=== PATIENT | male | born 1995 | race African-American/Black ===

== ENCOUNTER 2017-01-15 06:28 | Emergency (ER) | payer OTHER ==
[2017-01-15] MEDS ORDERED: ACETAMINOPHEN IV (For NPO) 1,000 MG in SALINE 1 100ML.BAG IVPB STA (07:29)
[2017-01-15] MEDS ORDERED: SODIUM CHLORIDE 0.9% 1,000 ML IV STA (07:29)
--- NOTE | 2017-01-15 07:32 | ED ---
General Adult HPI - General Chief complaint: Extremity Injury, Lower Stated complaint: Muscle pain Time Seen by Provider: 01/15/17 07:12 Source: patient, RN notes reviewed Mode of arrival: ambulatory Limitations: no limitations - History of Present Illness Initial comments: Patient is a pleasant 21-year-old male presenting to the emergency department complaining of diffuse muscle aches. Patient played vascular yesterday for 5 hours. Patient does frequently play basketball however usually only in an hour or so. Patient has diffuse muscle ache. Patient states mostly his legs and shoulders. Patient also complains of some discomfort of his abdomen only with movement. Patient denies any specific injury. No fever. - Related Data Home Medications Medication Instructions Recorded Confirmed No Known Home Medications [No 01/15/17 01/15/17 Known Home Medications] Allergies Allergy/AdvReac Type Severity Reaction Status Date / Time No Known Allergies Allergy Verified 01/15/17 07:19 Review of Systems ROS Statement: Those systems with pertinent positive or pertinent negative responses have been documented in the HPI. ROS Other: All systems not noted in ROS Statement are negative. Constitutional: Denies: fever, chills Eyes: Denies: eye pain ENT: Denies: ear pain Respiratory: Denies: cough, dyspnea Cardiovascular: Denies: chest pain Endocrine: Denies: fatigue Gastrointestinal: Reports: abdominal pain (Only with movement) Genitourinary: Denies: dysuria Skin: Denies: rash Neurological: Denies: weakness Past Medical History Past Medical History: No Reported History History of Any Multi-Drug Resistant Organisms: None Reported Past Surgical History: No Surgical Hx Reported Past Psychological History: No Psychological Hx Reported Smoking Status: Never smoker Past Alcohol Use History: None Reported Past Drug Use History: None Reported General Exam Limitations: no limitations General appearance: alert, in no apparent distress Head exam: Present: atraumatic Eye exam: Present: normal appearance, PERRL ENT exam: Present: normal oropharynx Neck exam: Present: normal inspection Respiratory exam: Present: normal lung sounds bilaterally Cardiovascular Exam: Present: regular rate, normal rhythm Expanded Peripheral pulses: 2+: Posterior Tibialis (R), Posterior Tibialis (L) GI/Abdominal exam: Present: soft. Absent: distended, tenderness, guarding, rebound, rigid, pulsatile mass Extremities exam: Present: normal inspection, full ROM. Absent: tenderness Neurological exam: Present: alert Psychiatric exam: Present: normal affect, normal mood Skin exam: Absent: rash Course Vital Signs 01/15/17 01/15/17 06:29 09:03 Temperature 98.7 F Pulse Rate 60 56 L Respiratory 20 18 Rate Blood Pressure 128/71 133/70 O2 Sat by Pulse 99 100 Oximetry Medical Decision Making - Medical Decision Making Patient reevaluated and is improved with IV fluids and over mouth. Patient updated on results. Patient advised to have CPK level redrawn within the next 24 hours. Patient is advised to avoid exertion for the next several days. - Lab Data Result diagrams: 01/15/17 07:50 01/15/17 07:50 Lab Results 01/15/17 01/15/17 01/15/17 Range/Units 07:50 07:50 08:20 WBC 3.4 L (4.0-11.0) k/uL RBC 4.71 (4.30-5.90) m/uL Hgb 13.0 (13.0-17.5) gm/dL Hct 40.2 (39.0-53.0) % MCV 85.5 (80.0-100.0) fL MCH 27.6 (25.0-35.0) pg MCHC 32.3 (31.0-37.0) g/dL RDW 13.1 (11.5-15.5) % Plt Count 191 (150-450) k/uL Neutrophils % 40 % Lymphocytes % 40 % Monocytes % 8 % Eosinophils % 7 % Basophils % 1 % Neutrophils # 1.4 (1.3-7.7) k/uL Lymphocytes # 1.4 (1.0-4.8) k/uL Monocytes # 0.3 (0-1.0) k/uL Eosinophils # 0.3 (0-0.7) k/uL Basophils # 0.0 (0-0.2) k/uL Sodium 145 (137-145) mmol/L Potassium 3.8 (3.5-5.1) mmol/L Chloride 108 H (98-107) mmol/L Carbon Dioxide 26 (22-30) mmol/L Anion Gap 11 mmol/L BUN 10 (9-20) mg/dL Creatinine 0.96 (0.66-1.25) mg/dL Est GFR (MDRD) Af Amer >60 (>60 ml/min/1.73 sqM) Est GFR (MDRD) Non-Af >60 (>60 ml/min/1.73 sqM) Glucose 91 (74-99) mg/dL Calcium 9.5 (8.4-10.2) mg/dL Magnesium 1.8 (1.6-2.3) mg/dL Total Bilirubin 0.6 (0.2-1.3) mg/dL AST 38 (17-59) U/L ALT 24 (21-72) U/L Alkaline Phosphatase 71 (38-126) U/L Creatine Kinase 1170 H (55-170) U/L Total Protein 7.5 (6.3-8.2) g/dL Albumin 4.2 (3.5-5.0) g/dL Urine Color Yellow Urine Appearance Clear (Clear) Urine pH 6.0 (5.0-8.0) Ur Specific [place] 1.030 (1.001-1.035) Urine Protein 1+ H (Negative) Urine Glucose (UA) Negative (Negative) Urine Ketones Negative (Negative) Urine Blood Negative (Negative) Urine Nitrate Negative (Negative) Urine Bilirubin Negative (Negative) Urine Urobilinogen 2.0 (<2.0) mg/dL Ur Leukocyte Esterase Trace H (Negative) Urine RBC 7 H (0-5) /hpf Urine WBC 9 H (0-5) /hpf Amorphous Sediment Rare H (None) /hpf Urine Mucus Many H (None) /hpf Urine Sperm Rare (None) /hpf Disposition Clinical Impression: Muscle fatigue Disposition: HOME SELF-CARE Condition: Stable Instructions: Rhabdomyolysis (ED) Additional Instructions: Increase fluids for the next several days. Avoid exertion for the next several days. Please have your CPK level rechecked in 24 hours. Number for right if her primary care physician. If unable to follow up with primary care physician can return to emergency department. Return for weakness, increased pain, change in urine color, worsening symptoms or other concerns. Referrals: None,Stated [Primary Care Provider] - 1-2 days Troy Dial MD [STAFF PHYSICIAN] - 1-2 days Time of Disposition: 09:13
[2017-01-15 08:32] LABS: Basophils % (A) 1 %; CH 27.6; CHCM 32.5; Eosinophils # (A) 0.3 k/uL (0-0.7); Eosinophils % (A) 7 %; HCT 40.2 % (39.0-53.0); HDW 2.47; Luc # (Auto) 0.13; Luc % (Auto) 4; Lymphocytes # (A) 1.4 k/uL (1.0-4.8); Lymphocytes % (A) 40 %; MCH 27.6 pg (25.0-35.0); MCHC 32.3 g/dL (31.0-37.0); MCV 85.5 fL (80.0-100.0); Mean Platelet Volume 8.6; Monocytes # (A) 0.3 k/uL (0-1.0); Monocytes % (A) 8 %; Neutrophils # (A) 1.4 k/uL (1.3-7.7); Neutrophils % (A) 40 %; RBC 4.71 m/uL (4.30-5.90); RDW 13.1 % (11.5-15.5); WBC 3.4 k/uL (4.0-11.0); WBC (Perox) 3.36
[2017-01-15 08:39] LABS: Amorphous Sediment,Urine Rare /hpf; Appearance,Urine Clear (Clear); Bilirubin,Urine Negative (Negative); Glucose,Urine (UA) Negative (Negative); Ketones,Urine Negative (Negative); Leukocyte Esterase,Urine Trace (Negative); Mucus,Urine Many /hpf; Nitrite,Urine Negative (Negative); Particle Count 9370; Protein,Urine 1+ (Negative); RBC,Urine 7 /hpf (0-5); Sperm,Urine Rare /hpf; UA Billing (MACRO vs. MICRO) MICRO; WBC,Urine 9 /hpf (0-5)
[2017-01-15 08:50] LABS: ALT 24 U/L (21-72); AST 38 U/L (17-59); Alkaline Phosphatase 71 U/L (38-126); Anion Gap 11 mmol/L; Blood Urea Nitrogen 10 mg/dL (9-20); Calcium 9.5 mg/dL (8.4-10.2); Carbon Dioxide 26 mmol/L (22-30); Chloride 108 mmol/L (98-107); Creatine Kinase 1170 U/L (55-170); Glucose 91 mg/dL (74-99); Magnesium 1.8 mg/dL (1.6-2.3); Non-African American GFR(MDRD) >60 (>60 ml/min/1.73 sqM); Potassium 3.8 mmol/L (3.5-5.1); Sodium 145 mmol/L (137-145); Total Bilirubin 0.6 mg/dL (0.2-1.3); Total Protein 7.5 g/dL (6.3-8.2)
[2017-01-15 09:17] VITALS: RESP 18
[2017-01-15 09:20] VITALS: BP 137/68; PULSE 59; TEMP 97.9
== END 2017-01-15 09:24 | disposition home or self-care (01) ==
LOC: EC 06:28
DX: M62.82 Rhabdomyolysis (principal)
CPT/HCPCS: 36415; 80053; 82550; 83735; 85025; 81001; 99283; 96374; 96361; J0131

== ENCOUNTER 2017-05-06 22:20 | Emergency (ER) | payer OTHER ==
[2017-05-06 22:25] VITALS: BP 122/77; PULSE 52; RESP 18; TEMP 97.3
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
--- NOTE | 2017-05-06 23:14 | XR ---
EXAM: XR Right Hand Complete, 3 or More Views CLINICAL HISTORY: Reason: Pain TECHNIQUE: Frontal, lateral and oblique views of the right hand. COMPARISON: No relevant prior studies available. FINDINGS: Bones/joints: No evidence of fracture or dislocation. No bony erosive changes. No significant arthritic changes identified. Soft tissues: No radiopaque foreign body. IMPRESSION: No acute bone or joint abnormalities. No evidence of fracture or dislocation.
== END 2017-05-06 23:03 | disposition home or self-care (01) ==
LOC: EC 22:20
DX: S60.221A Contusion of right hand, initial encounter (principal); W22.8XXA Striking against or struck by other objects, initial encounter
CPT/HCPCS: 99283

== ENCOUNTER 2017-06-01 10:59 | Emergency (ER) | payer OTHER ==
[2017-06-01 11:04] VITALS: RESP 18
--- NOTE | 2017-06-01 11:24 | ED ---
General Adult HPI - General Chief complaint: Urogenital Stated complaint: MALE PAIN Time Seen by Provider: 06/01/17 11:05 Source: patient, family, RN notes reviewed, old records reviewed Mode of arrival: ambulatory Limitations: no limitations - History of Present Illness Initial comments: Chief complaint history of present illness; is a 21-year-old male here with a complaint of discomfort to his right testicle starting approximately 3 days ago. One day after started the pain subsided. Present back for the past 2 days. Tender epididymis on examination. Denies any penile discharge. Denies any direct injury. No nausea no vomiting. - Related Data Previous Rx's Medication Instructions Recorded Doxycycline Hyclate 100 mg PO BID #19 tab 06/01/17 Allergies Allergy/AdvReac Type Severity Reaction Status Date / Time No Known Allergies Allergy Verified 06/01/17 12:15 Review of Systems ROS Statement: Those systems with pertinent positive or pertinent negative responses have been documented in the HPI. Review of systems no other complaints other than right testicular discomfort. All systems are reviewed. Past medical problems no chronic medical problems. No surgeries. Family history no episodes of cancer diabetes or high blood pressure per patient. Denies any ALLERGIES. Denies smoking. Denies alcohol use. ROS Other: All systems not noted in ROS Statement are negative. Past Medical History Past Medical History: No Reported History History of Any Multi-Drug Resistant Organisms: None Reported Past Surgical History: No Surgical Hx Reported Past Psychological History: No Psychological Hx Reported Smoking Status: Never smoker Past Alcohol Use History: None Reported Past Drug Use History: None Reported General Exam - General Exam Comments Initial Comments: General: The patient is awake and alert, complains or right testicular discomfort. Vital signs temp 99.6 pulse 51 respiratory rate 18 pulse ox 99% room air blood pressure 132/74 Gastrointestinal: Abdomen nontender. No pain over the right inguinal area. No evidence of any hernias. Examination of the genitalia finds normal appearing penis with circumcision. Normal bilateral cremasteric reflexes. Left and right testicle. Previous same size but significantly tender right testicle with manipulation and increased tenderness with palpation of the epididymis. No penile discharge. Limitations: no limitations Course Vital Signs 06/01/17 06/01/17 11:02 13:45 Temperature 99.6 F 98.2 F Pulse Rate 51 L 69 Respiratory 18 18 Rate Blood Pressure 132/74 129/65 O2 Sat by Pulse 99 Oximetry Medical Decision Making - Medical Decision Making Urinalysis was clean no signs of infection. Ultrasound done of the scrotum was performed and reviewed radiologist his impression is that Doppler performed to assess for testicular vascularity, good bilateral color flow and waveforms are seen. There is no evidence of testicular torsion. However there is a complex hypoechoic nonvascular lesion in the right epididymis measuring 0.9 point 0.9 8.7 cm. No hydroceles or varicocele. Final impression no testicular torsion or mass. 9 x 6 mm complex cyst in the right epididymis. No free fluid there is no evidence of epididymitis. As read by Dr. Giron Due to clinical history and age patient will be treated is only has an epididymitis and referred to urology. Patient will be placed on doxycycline 100 twice a day for 10 days first dose was given here in emergency room. Also received Rocephin 250 IM. Told not to engage in any sexual activity until the gonorrhea and chlamydia tests return. He is to call follow-up nurse for those results. - Lab Data Lab Results 06/01/17 Range/Units 12:40 Urine Color Yellow Urine Appearance Clear (Clear) Urine pH 6.5 (5.0-8.0) Ur Specific [place] 1.017 (1.001-1.035) Urine Protein 1+ H (Negative) Urine Glucose (UA) Negative (Negative) Urine Ketones Negative (Negative) Urine Blood Negative (Negative) Urine Nitrite Negative (Negative) Urine Bilirubin Negative (Negative) Urine Urobilinogen <2.0 (<2.0) mg/dL Ur Leukocyte Esterase Negative (Negative) Urine RBC 1 (0-5) /hpf Urine WBC 2 (0-5) /hpf Ur Squamous Epith Cells <1 (0-4) /hpf Urine Bacteria Rare H (None) /hpf Urine Mucus Rare H (None) /hpf Disposition Clinical Impression: Epididymitis, right Disposition: HOME SELF-CARE Condition: Fair Instructions: Epididymitis (ED), Testicle Pain (ED) Additional Instructions: Take medications to completed. Call follow-up nurse for final results for urine test. Follow-up with family physician. And on-call urologist. Prescriptions: Doxycycline Hyclate 100 mg PO BID #19 tab Referrals: None,Stated [Primary Care Provider] - 1-2 days Time of Disposition: 14:23
[2017-06-01 13:20] LABS: Appearance,Urine Clear (Clear); Bacteria,Urine Rare /hpf; Bilirubin,Urine Negative (Negative); Glucose,Urine (UA) Negative (Negative); Ketones,Urine Negative (Negative); Leukocyte Esterase,Urine Negative (Negative); Mucus,Urine Rare /hpf; Nitrite,Urine Negative (Negative); PH, Urine 6.5 (5.0-8.0); Particle Count 2390; Protein,Urine 1+ (Negative); RBC,Urine 1 /hpf (0-5); Specific Gravity,Urine 1.017 (1.001-1.035); Squamous Epithelial Cell,Urine <1 /hpf (0-4); UA Billing (MACRO vs. MICRO) MICRO; Urobilinogen,Urine <2.0 mg/dL (<2.0); WBC,Urine 2 /hpf (0-5)
--- NOTE | 2017-06-01 13:36 | US ---
EXAMINATION TYPE: US scrotum with doppler. Grayscale and color Doppler Duplex imaging performed of t he scrotum. DATE OF EXAM: 06/01/2017 COMPARISON: NONE CLINICAL HISTORY: Rule out right epididymitis. EXAM MEASUREMENTS: TESTICLES: Right Testicle: 3.6 x 1.9 x 3.3 cm Left Testicle: 3.4 x 2.0 x 3.1 cm EPIDIDYMIS HEAD: Right Epididymis: 1.4 x 1.0 x 1.1 cm Left Epididymis: 1.2 x 0.7 x 1.1 cm Doppler performed to assess for testicular vascularity; good bilateral color flow and waveforms are s een. There is no evidence of testicular torsion. However there is a complex hypoechoic nonvascular lesion in the right epididymis measuring 0.9 x 0.9 x 0.7 cm. Presence of hydroceles: no Presence of varicoceles: no IMPRESSION: No testicular torsion or mass. 9 x 6 mm complex cyst in the right epididymis. No free flu id. There is no evidence of epididymitis.
[2017-06-01] MEDS ORDERED: DOXYCYCLINE 50 MG CAP PO STA (14:21)
[2017-06-01] MEDS ORDERED: cefTRIAXone 250 MG VIAL IM STA (14:21)
[2017-06-01 14:51] VITALS: BP 142/90; PULSE 59; TEMP 97.4
== END 2017-06-01 14:51 | disposition home or self-care (01) ==
LOC: EC 10:59
DX: N45.1 Epididymitis (principal)
CPT/HCPCS: 96372; 99284; 81001; 87491; 87591; 93975; 76870; J0696

== ENCOUNTER 2017-06-25 21:24 | Emergency (ER) | payer OTHER ==
[2017-06-25 21:38] VITALS: RESP 18
[2017-06-25] MEDS ORDERED: ONDANSETRON ODT 4 MG TAB PO STA (23:00)
[2017-06-25] MEDS ORDERED: Acetaminophen-Codeine 300-30mg TAB PO STA (23:00)
[2017-06-25] MEDS ORDERED: PENICILLIN V POTASSIUM 250 MG TAB PO STA (23:01)
--- NOTE | 2017-06-25 23:02 | ED ---
General Adult HPI - General Chief complaint: Headache Stated complaint: nausea Time Seen by Provider: 06/25/17 22:42 Source: patient, RN notes reviewed Mode of arrival: ambulatory Limitations: no limitations - History of Present Illness Initial comments: 21-year-old male presents emergency Department chief complaint dental pain. Patient states she's had left upper dental pain for last few days and not headache associated with it. Patient denies any fever or chills denies any neck pain or neck stiffness. Patient states she's been told he has a bad tooth needs it pulled states she does not have the financial means for this. Patient states that he does not take any medications for the pain at this time. - Related Data Previous Rx's Medication Instructions Recorded Acetaminophen-Codeine 300-30mg 1 tab PO Q4H PRN #20 tablet 06/25/17 [Tylenol #3] Ondansetron Odt [Zofran Odt] 4 mg PO Q8HR PRN #10 tab 06/25/17 Penicillin V Potassium [Pen Vee K] 500 mg PO QID #40 tab 06/25/17 Allergies Allergy/AdvReac Type Severity Reaction Status Date / Time No Known Allergies Allergy Verified 06/25/17 22:34 Review of Systems ROS Statement: Those systems with pertinent positive or pertinent negative responses have been documented in the HPI. ROS Other: All systems not noted in ROS Statement are negative. Past Medical History Past Medical History: No Reported History History of Any Multi-Drug Resistant Organisms: None Reported Past Surgical History: No Surgical Hx Reported Past Psychological History: No Psychological Hx Reported Smoking Status: Never smoker Past Alcohol Use History: None Reported Past Drug Use History: None Reported General Exam Limitations: no limitations General appearance: alert, in no apparent distress Head exam: Present: atraumatic, normocephalic, normal inspection Eye exam: Present: normal appearance, PERRL, EOMI. Absent: scleral icterus, conjunctival injection, periorbital swelling ENT exam: Present: mucous membranes moist, TM's normal bilaterally, normal external ear exam. Absent: normal oropharynx (Poor dentition, ental infection noted left upper no drainable abscess.) Neck exam: Present: normal inspection, full ROM. Absent: tenderness, meningismus, lymphadenopathy Respiratory exam: Present: normal lung sounds bilaterally. Absent: respiratory distress, wheezes, rales, rhonchi, stridor Cardiovascular Exam: Present: regular rate, normal rhythm, normal heart sounds. Absent: systolic murmur, diastolic murmur, rubs, gallop, clicks Course Vital Signs 06/25/17 06/25/17 21:35 23:20 Temperature 97.7 F 98.7 F Pulse Rate 55 L 78 Respiratory 18 18 Rate Blood Pressure 117/72 125/75 O2 Sat by Pulse 99 99 Oximetry Medical Decision Making - Medical Decision Making 21-year-old male presented for dental pain headache and some nausea. Patient will be given antibiotics pain medication and denies medication return parameters were discussed. Disposition Clinical Impression: Pain, dental, Headache Disposition: HOME SELF-CARE Condition: Stable Instructions: Toothache (ED) Additional Instructions: Please return to the Emergency Department if symptoms worsen or any other concerns. Prescriptions: Acetaminophen-Codeine 300-30mg [Tylenol #3] 1 tab PO Q4H PRN #20 tablet PRN Reason: pain Ondansetron Odt [Zofran Odt] 4 mg PO Q8HR PRN #10 tab PRN Reason: Nausea Penicillin V Potassium [Pen Vee K] 500 mg PO QID #40 tab Referrals: None,Stated [Primary Care Provider] - 1-2 days
[2017-06-25 23:21] VITALS: BP 125/75; PULSE 78; TEMP 98.7
== END 2017-06-25 23:23 | disposition home or self-care (01) ==
LOC: EC 21:24
DX: R51 Headache (principal); K08.89 Other specified disorders of teeth and supporting structures; R11.0 Nausea
CPT/HCPCS: 99283

== ENCOUNTER 2017-07-18 07:16 | Emergency (ER) | payer OTHER ==
[2017-07-18 07:22] VITALS: BP 133/94; PULSE 51; RESP 18; TEMP 98.3
--- NOTE | 2017-07-18 07:52 | ED ---
General Adult HPI - General Chief complaint: Extremity Injury, Upper Stated complaint: RT ARM PAIN Time Seen by Provider: 07/18/17 07:40 Source: patient, RN notes reviewed, old records reviewed Mode of arrival: ambulatory Limitations: no limitations - History of Present Illness Initial comments: This is a 21 male to the ED w Right upper arm pain, tricep area pain. Patient his tricep at work on a shelf and had some initial pain and swelling. Patient has no other injury, no neurological deficit. Patient went to sleep last night to let it wear off and woke this morning and it was worse. at this time the pain is subsided. - Related Data Previous Rx's Medication Instructions Recorded Naproxen [Naprosyn] 500 mg PO Q12HR #30 tab 07/18/17 Allergies Allergy/AdvReac Type Severity Reaction Status Date / Time No Known Allergies Allergy Verified 07/18/17 07:46 Review of Systems ROS Statement: Those systems with pertinent positive or pertinent negative responses have been documented in the HPI. ROS Other: All systems not noted in ROS Statement are negative. Past Medical History Past Medical History: No Reported History History of Any Multi-Drug Resistant Organisms: None Reported Past Surgical History: No Surgical Hx Reported Past Psychological History: No Psychological Hx Reported Smoking Status: Never smoker Past Alcohol Use History: None Reported Past Drug Use History: None Reported General Exam Limitations: no limitations General appearance: alert, in no apparent distress Head exam: Present: atraumatic, normocephalic, normal inspection Eye exam: Present: normal appearance, PERRL, EOMI. Absent: scleral icterus, conjunctival injection, periorbital swelling ENT exam: Present: normal exam, mucous membranes moist Neck exam: Present: normal inspection. Absent: tenderness, meningismus, lymphadenopathy Respiratory exam: Present: normal lung sounds bilaterally. Absent: respiratory distress, wheezes, rales, rhonchi, stridor Cardiovascular Exam: Present: regular rate, normal rhythm, normal heart sounds. Absent: systolic murmur, diastolic murmur, rubs, gallop, clicks GI/Abdominal exam: Present: soft, normal bowel sounds. Absent: distended, tenderness, guarding, rebound, rigid Extremities exam: Present: normal inspection, full ROM, normal capillary refill. Absent: tenderness, pedal edema, joint swelling, calf tenderness Back exam: Present: normal inspection Neurological exam: Present: alert, oriented X3, CN II-XII intact Psychiatric exam: Present: normal affect, normal mood Skin exam: Present: warm, dry, intact, normal color. Absent: rash Course Vital Signs 07/18/17 07:20 Temperature 98.3 F Pulse Rate 51 L Respiratory 18 Rate Blood Pressure 133/94 O2 Sat by Pulse 99 Oximetry Medical Decision Making - Medical Decision Making 21 male to the ED w arm pain, contusion at this time pain is released and patient can be discharged home. Disposition Clinical Impression: Contusion of right arm Disposition: HOME SELF-CARE Instructions: Contusion in Adults (ED) Prescriptions: Naproxen [Naprosyn] 500 mg PO Q12HR #30 tab Referrals: None,Stated [Primary Care Provider] - 1-2 days
== END 2017-07-18 08:00 | disposition home or self-care (01) ==
LOC: EC 07:16
DX: S40.021A Contusion of right upper arm, initial encounter (principal); W22.8XXA Striking against or struck by other objects, initial encounter; Y99.0 Civilian activity done for income or pay
CPT/HCPCS: 99283

== ENCOUNTER 2018-04-28 21:40 | Emergency (ER) | payer OTHER ==
[2018-04-28 21:51] VITALS: RESP 18
[2018-04-28] MEDS ORDERED: METOCLOPRAMIDE 10 MG TAB PO STA (22:17)
[2018-04-28] MEDS ORDERED: IBUPROFEN 400 MG TAB PO STA (22:17)
--- NOTE | 2018-04-28 22:41 | CT ---
EXAMINATION TYPE: CT brain wo con DATE OF EXAM: 04/28/2018 COMPARISON: NONE HISTORY: Headache x4 days. CT DLP: 832.8 mGycm. Automated Exposure Control for Dose Reduction was Utilized. TECHNIQUE: CT scan of the head is performed without contrast. FINDINGS: Ventricles and sulci appear normal. There is no mass effect nor midline shift. There is n o sign of intracranial hemorrhage. The calvarium is intact. There is no evidence of cerebral edema. T here is some debris in the left external auditory canal. IMPRESSION: Negative CT scan of the brain.
--- NOTE | 2018-04-28 22:56 | ED ---
Headache HPI - General Chief Complaint: Headache Stated Complaint: Headache Time Seen by Provider: 04/28/18 21:56 Mode of arrival: ambulatory Limitations: no limitations - History of Present Illness Initial Comments: This patient is a 22-year-old man who presents to be evaluated for persistent headache that is been going on since Saturday. He states that it came on while he was playing video games. He indicates the headache is throbbing, bifrontal, and it is the worse headache of his life. Denies any other associated symptoms. He states that since then the severity has decreased somewhat. He is not having any fever or chills. No change in vision or any neurologic symptoms. No neck stiffness. MD Complaint: headache Onset/Timin -: days(s) Onset Description: gradual Location: right, left, frontal Severity: severe Quality: aching, throbbing Consistency: intermittent Improves With: nothing Worsens With: none Context: occurred at rest (While playing video games) Associated Symptoms: nausea Treatments Prior to Arrival: none - Related Data Home Medications Medication Instructions Recorded Confirmed No Known Home Medications [No 04/28/18 04/28/18 Known Home Medications] Allergies Allergy/AdvReac Type Severity Reaction Status Date / Time No Known Allergies Allergy Verified 04/28/18 22:05 Review of Systems ROS Statement: Those systems with pertinent positive or pertinent negative responses have been documented in the HPI. ROS Other: All systems not noted in ROS Statement are negative. Constitutional: Denies: fever, chills, weakness Eyes: Denies: eye pain, vision change ENT: Denies: ear pain, hearing loss, epistaxis Respiratory: Denies: cough, dyspnea Cardiovascular: Denies: palpitations, syncope Gastrointestinal: Reports: nausea. Denies: abdominal pain, vomiting Neurological: Reports: headache. Denies: weakness, numbness, paresthesias, confusion, abnormal gait Hematological/Lymphatic: Denies: easy bleeding Past Medical History Past Medical History: No Reported History History of Any Multi-Drug Resistant Organisms: None Reported Past Surgical History: No Surgical Hx Reported Past Psychological History: No Psychological Hx Reported Smoking Status: Never smoker Past Alcohol Use History: None Reported Past Drug Use History: None Reported General Exam Limitations: no limitations General appearance: alert, in no apparent distress Head exam: Present: atraumatic, normocephalic Eye exam: Present: normal appearance, PERRL, EOMI. Absent: scleral icterus, conjunctival injection, nystagmus, periorbital swelling, periorbital tenderness ENT exam: Present: normal oropharynx, TM's normal bilaterally, normal external ear exam Neck exam: Present: normal inspection, full ROM. Absent: tenderness, meningismus Neurological exam: Present: alert, oriented X3, CN II-XII intact, normal gait. Absent: motor sensory deficit Psychiatric exam: Present: normal affect Skin exam: Present: warm, dry, intact, normal color. Absent: rash Course Vital Signs 04/28/18 21:49 Temperature 98.5 F Pulse Rate 53 L Respiratory 18 Rate Blood Pressure 119/74 O2 Sat by Pulse 100 Oximetry Disposition Clinical Impression: Headache Disposition: HOME SELF-CARE Condition: Good Instructions: Acute Headache (ED) Is patient prescribed a controlled substance at d/c from ED?: No Referrals: None,Stated [Primary Care Provider] - 1-2 days
[2018-04-28 23:10] VITALS: BP 122/66; PULSE 54; TEMP 97
== END 2018-04-28 23:09 | disposition home or self-care (01) ==
LOC: EC 21:40
DX: R51 Headache (principal); R11.0 Nausea
CPT/HCPCS: 70450; 99284

== ENCOUNTER 2018-12-24 18:09 | Emergency (ER) | payer OTHER ==
[2018-12-24] MEDS ORDERED: ACETAMINOPHEN TAB 325 MG TAB PO STA (19:03)
--- NOTE | 2018-12-24 19:11 | ED ---
General Adult HPI - General Chief complaint: Headache Stated complaint: Headache Time Seen by Provider: 12/24/18 18:14 Source: patient, RN notes reviewed Mode of arrival: ambulatory Limitations: no limitations - History of Present Illness Initial comments: 23-year-old male presents to the emergency department for a chief complaint of headache. Patient states his work wanted him to be evaluated. Patient states that for the past few weeks when he goes to work he has a headache. He states this is across the front of his forehead and comes on gradually. Patient states that when he goes home from work and rest this goes away. 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 He had does admit to tightness in his shoulders. He denies any neck stiffness or pain. He denies any nausea or vomiting. Patient states his pain is currently resolved at a 0 but he presented because his work wanted him to be evaluated. Patient has no other complaints at this time including shortness of breath, chest pain, abdominal pain, nausea or vomiting, or visual changes. - Related Data Home Medications Medication Instructions Recorded Confirmed No Known Home Medications 04/28/18 12/24/18 Allergies Allergy/AdvReac Type Severity Reaction Status Date / Time No Known Allergies Allergy Verified 12/24/18 19:00 Review of Systems ROS Statement: Those systems with pertinent positive or pertinent negative responses have been documented in the HPI. ROS Other: All systems not noted in ROS Statement are negative. Past Medical History Past Medical History: No Reported History Additional Past Medical History / Comment(s): migraine headaches History of Any Multi-Drug Resistant Organisms: None Reported Past Surgical History: No Surgical Hx Reported Past Psychological History: No Psychological Hx Reported Smoking Status: Former smoker Past Alcohol Use History: None Reported Past Drug Use History: None Reported General Exam Limitations: no limitations General appearance: alert, in no apparent distress Head exam: Present: atraumatic, normocephalic, normal inspection Eye exam: Present: normal appearance, PERRL, EOMI. Absent: scleral icterus, conjunctival injection, periorbital swelling ENT exam: Present: normal exam, normal oropharynx, mucous membranes moist, TM's normal bilaterally, normal external ear exam Neck exam: Present: normal inspection, full ROM. Absent: tenderness, meningismus (negative kernig, brudzinsky signs), lymphadenopathy Respiratory exam: Present: normal lung sounds bilaterally. Absent: respiratory distress, wheezes, rales, rhonchi, stridor Cardiovascular Exam: Present: regular rate, normal rhythm, normal heart sounds. Absent: systolic murmur, diastolic murmur, rubs, gallop, clicks Neurological exam: Present: alert, oriented X3, CN II-XII intact, normal gait Expanded Patient oriented to: Present: person, place, time Speech: Present: fluid speech Cranial nerves: EOM's Intact: Normal, Tongue Deviation: Normal, Nystagmus: Normal, Facial Sensation: Normal Cerebellar function: Finger to Nose: Normal, Romberg: Normal Upper motor neuron: Pronator Drift: Normal Sensory exam: Upper Extremity Light Touch: Normal, Upper Extremity Pin Prick: Normal, Lower Extremity Light Touch: Normal, Lower Extremity Pin Prick: Normal Motor strength exam: RUE: 5, LUE: 5, RLE: 5, LLE: 5 Eye Response: (4) open spontaneously Motor Response: (6) obeys commands Verbal Response: (5) oriented Meghan Total: 15 Psychiatric exam: Present: normal affect, normal mood Course Vital Signs 12/24/18 18:11 Temperature 98.9 F Pulse Rate 57 L Respiratory 18 Rate Blood Pressure 142/67 O2 Sat by Pulse 98 Oximetry Medical Decision Making - Medical Decision Making 23-year-old well-appearing male presents to the emergency department for a chief complaint of headache. 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 He states during this time he is bent over working on parts. He denies significant fumes in the area. He denies other coworkers having similar symptoms. Patient denies any neck pain or stiffness. On exam no focal neuro deficits. Patient is well-appearing. No gait instability. Patient had a negative CAT scan about 6 months ago for similar complaints. He states his headaches have since resolved. he currently rating his pain at a 0 however he did agree to Tylenol. Given that headaches worsen at work when patient is bent over working on car parts and resolves when he goes home this is likely related to tension. However patient will follow up with primary care. He was also given strict return precautions. He will return here if he has any worsening symptoms. Disposition Clinical Impression: Headache Disposition: HOME SELF-CARE Condition: Good Instructions (If sedation given, give patient instructions): Acute Headache (ED ) Additional Instructions: Take motrin and tylenol for pain. Please follow up with primary care in 1-2 days. Please return to the emergency department if you have any worsening symptoms. Is patient prescribed a controlled substance at d/c from ED?: No Referrals: Evangelina Tariq MD [STAFF PHYSICIAN] - 1-2 days Time of Disposition: 19:14
[2018-12-24 19:53] VITALS: BP 113/65; PULSE 81; RESP 20; TEMP 97.9
== END 2018-12-24 19:21 | disposition home or self-care (01) ==
LOC: EC 18:09
DX: R51 Headache (principal); Z87.891 Personal history of nicotine dependence
CPT/HCPCS: 99283

== ENCOUNTER 2019-06-30 23:13 | Emergency (ER) | payer OTHER ==
[2019-06-30 23:22] VITALS: RESP 18
[2019-06-30] MEDS ORDERED: SODIUM CHLORIDE 0.9% 1,000 ML IV STA ×2 (23:34)
[2019-06-30] MEDS ORDERED: ONDANSETRON 4 MG/2 ML VIAL IVP STA (23:34)
--- NOTE | 2019-07-01 00:22 | ED ---
General Adult HPI - General Source: patient, EMS Mode of arrival: EMS <Mikel Carrillo - Last Filed: 07/01/19 00:19> <Joe Kwon - Last Filed: 07/01/19 04:15> - General Chief complaint: Nausea/Vomiting/Diarrhea Stated complaint: Depression Time Seen by Provider: 06/30/19 23:25 - History of Present Illness Initial comments: This 23-year-old -[place] male presents with a complaint of some depression. He states that it is been present over the last week or so. He states that he has been having relationship problems as well as financial problems. He is been under a lot of stress. He states that this is caused a significant decrease in appetite to the point where he can barely eat. He states that if he does eat he will vomit up food. He states that he is still been able to drink fluids. He denies any previous history of depression. He has never had any previous psychiatric hospitalizations and has never been on any psychiatric medicines in the past. He denies any fevers chills diarrhea or abdominal pain. He denies any suicidal ideations but does admit to doing some cutting. He has mild abrasions on his arms and chest region. No other complaints or modifying factors. (Mikel Carrillo) - Related Data Home Medications Medication Instructions Recorded Confirmed No Known Home Medications 04/28/18 12/24/18 Allergies Allergy/AdvReac Type Severity Reaction Status Date / Time No Known Allergies Allergy Verified 12/24/18 19:00 Review of Systems ROS Other: All systems not noted in ROS Statement are negative. <Mikel Carrillo - Last Filed: 07/01/19 00:19> ROS Other: All systems not noted in ROS Statement are negative. <Joe Kwon - Last Filed: 07/01/19 04:15> ROS Statement: Those systems with pertinent positive or pertinent negative responses have been documented in the HPI. Past Medical History Past Medical History: No Reported History Additional Past Medical History / Comment(s): migraine headaches History of Any Multi-Drug Resistant Organisms: None Reported Past Surgical History: No Surgical Hx Reported Past Psychological History: Depression Smoking Status: Former smoker Past Alcohol Use History: None Reported Past Drug Use History: Marijuana <Mikel Carrillo - Last Filed: 07/01/19 00:19> General Exam <Mikel Carrillo - Last Filed: 07/01/19 00:19> - General Exam Comments Initial Comments: GENERAL: The patient is well nourished and well hydrated. VITAL SIGNS: Heart rate, blood pressure, respiratory rate reviewed as recorded in nurse's notes. EYES: Pupils are round and reactive. Extraocular movements are intact. No conjunctival / lid redness or swelling. ENT: No external evidence of injury, swelling, or ecchymosis. Airway is patent. Throat is clear. NECK: Nontender. No swelling or evidence of injury. No subcutaneous emphysema. Trachea is midline. No thyroid mass. HEART: Regular rate and rhythm. Good peripheral pulses. LUNGS/CHEST: Breath sounds clear and equal bilaterally. No rales, rhonchi, or wheezes. No ecchymosis, subcutaneous emphysema, or tenderness. ABDOMEN: Abdomen soft without tenderness. No palpable masses or organomegaly. No peritoneal signs. No abdominal wall swelling or ecchymosis. EXTREMITIES: No extremity tenderness. Normal muscle tone and function. No thoracolumbar tenderness. NEUROLOGIC: Sensation is grossly intact. Cranial nerve exam reveals face is symmetrical, tongue is midline, speech is clear. SKIN: Minor abrasions are noted to proximal arms and chest. No induration or masses noted. PSYCHIATRIC: Alert and oriented. Patient does have a very flat affect. (Mikel Carrillo) Course Vital Signs 06/30/19 23:18 Temperature 99.2 F Pulse Rate 63 Respiratory 18 Rate Blood Pressure 151/75 O2 Sat by Pulse 99 Oximetry Medical Decision Making <Mikel Carrillo - Last Filed: 07/01/19 00:19> - Lab Data Result diagrams: 07/01/19 00:03 07/01/19 00:03 <Joe Kwon - Last Filed: 07/01/19 04:15> - Medical Decision Making The patient was seen and examined. All diagnostics were reviewed. An IV is established and he is hydrated. (Mikel Carrillo) - Lab Data Lab Results 07/01/19 07/01/19 07/01/19 Range/Units 00:03 00:03 00:03 WBC 5.4 (3.8-10.6) k/uL RBC 5.08 (4.30-5.90) m/uL Hgb 14.1 (13.0-17.5) gm/dL Hct 42.9 (39.0-53.0) % MCV 84.4 (80.0-100.0) fL MCH 27.8 (25.0-35.0) pg MCHC 33.0 (31.0-37.0) g/dL RDW 13.1 (11.5-15.5) % Plt Count 207 (150-450) k/uL Neutrophils % 62 % Lymphocytes % 28 % Monocytes % 6 % Eosinophils % 1 % Basophils % 1 % Neutrophils # 3.3 (1.3-7.7) k/uL Lymphocytes # 1.5 (1.0-4.8) k/uL Monocytes # 0.3 (0-1.0) k/uL Eosinophils # 0.0 (0-0.7) k/uL Basophils # 0.0 (0-0.2) k/uL Sodium 140 (137-145) mmol/L Potassium 4.1 (3.5-5.1) mmol/L Chloride 104 (98-107) mmol/L Carbon Dioxide 24 (22-30) mmol/L Anion Gap 12 mmol/L BUN 14 (9-20) mg/dL Creatinine 0.88 (0.66-1.25) mg/dL Est GFR (CKD-EPI)AfAm >90 (>60 ml/min/1.73 sqM) Est GFR (CKD-EPI)NonAf >90 (>60 ml/min/1.73 sqM) Glucose 118 H (74-99) mg/dL Calcium 10.3 H (8.4-10.2) mg/dL Total Bilirubin 0.4 (0.2-1.3) mg/dL AST 31 (17-59) U/L ALT 21 (21-72) U/L Alkaline Phosphatase 65 (38-126) U/L Total Protein 8.5 H (6.3-8.2) g/dL Albumin 4.9 (3.5-5.0) g/dL Amylase 69 (30-110) U/L Lipase 97 (23-300) U/L Urine Color Urine Appearance (Clear) Urine pH (5.0-8.0) Ur Specific [place] (1.001-1.035) Urine Protein (Negative) Urine Glucose (UA) (Negative) Urine Ketones (Negative) Urine Blood (Negative) Urine Nitrite (Negative) Urine Bilirubin (Negative) Urine Urobilinogen (<2.0) mg/dL Ur Leukocyte Esterase (Negative) Urine RBC (0-5) /hpf Urine WBC (0-5) /hpf Ur Squamous Epith Cells (0-4) /hpf Urine Bacteria (None) /hpf Hyaline Casts (0-2) /lpf Urine Mucus (None) /hpf Urine Opiates Screen Not Detected (NotDetected) Ur Oxycodone Screen Not Detected (NotDetected) Urine Methadone Screen Not Detected (NotDetected) Ur Propoxyphene Screen Not Detected (NotDetected) Ur Barbiturates Screen Not Detected (NotDetected) U Tricyclic Antidepress Not Detected (NotDetected) Ur Phencyclidine Scrn Not Detected (NotDetected) Ur Amphetamines Screen Not Detected (NotDetected) U Methamphetamines Scrn Not Detected (NotDetected) U Benzodiazepines Scrn Not Detected (NotDetected) Urine Cocaine Screen Not Detected (NotDetected) U Marijuana (THC) Screen Detected H (NotDetected) Serum Alcohol <10 mg/dL 07/01/19 Range/Units 00:03 WBC (3.8-10.6) k/uL RBC (4.30-5.90) m/uL Hgb (13.0-17.5) gm/dL Hct (39.0-53.0) % MCV (80.0-100.0) fL MCH (25.0-35.0) pg MCHC (31.0-37.0) g/dL RDW (11.5-15.5) % Plt Count (150-450) k/uL Neutrophils % % Lymphocytes % % Monocytes % % Eosinophils % % Basophils % % Neutrophils # (1.3-7.7) k/uL Lymphocytes # (1.0-4.8) k/uL Monocytes # (0-1.0) k/uL Eosinophils # (0-0.7) k/uL Basophils # (0-0.2) k/uL Sodium (137-145) mmol/L Potassium (3.5-5.1) mmol/L Chloride (98-107) mmol/L Carbon Dioxide (22-30) mmol/L Anion Gap mmol/L BUN (9-20) mg/dL Creatinine (0.66-1.25) mg/dL Est GFR (CKD-EPI)AfAm (>60 ml/min/1.73 sqM) Est GFR (CKD-EPI)NonAf (>60 ml/min/1.73 sqM) Glucose (74-99) mg/dL Calcium (8.4-10.2) mg/dL Total Bilirubin (0.2-1.3) mg/dL AST (17-59) U/L ALT (21-72) U/L Alkaline Phosphatase (38-126) U/L Total Protein (6.3-8.2) g/dL Albumin (3.5-5.0) g/dL Amylase (30-110) U/L Lipase (23-300) U/L Urine Color Yellow Urine Appearance Clear (Clear) Urine pH 6.0 (5.0-8.0) Ur Specific [place] 1.046 H (1.001-1.035) Urine Protein 1+ H (Negative) Urine Glucose (UA) Negative (Negative) Urine Ketones 1+ H (Negative) Urine Blood Negative (Negative) Urine Nitrite Negative (Negative) Urine Bilirubin Negative (Negative) Urine Urobilinogen <2.0 (<2.0) mg/dL Ur Leukocyte Esterase Negative (Negative) Urine RBC 1 (0-5) /hpf Urine WBC 6 H (0-5) /hpf Ur Squamous Epith Cells <1 (0-4) /hpf Urine Bacteria Rare H (None) /hpf Hyaline Casts 4 H (0-2) /lpf Urine Mucus Many H (None) /hpf Urine Opiates Screen (NotDetected) Ur Oxycodone Screen (NotDetected) Urine Methadone Screen (NotDetected) Ur Propoxyphene Screen (NotDetected) Ur Barbiturates Screen (NotDetected) U Tricyclic Antidepress (NotDetected) Ur Phencyclidine Scrn (NotDetected) Ur Amphetamines Screen (NotDetected) U Methamphetamines Scrn (NotDetected) U Benzodiazepines Scrn (NotDetected) Urine Cocaine Screen (NotDetected) U Marijuana (THC) Screen (NotDetected) Serum Alcohol mg/dL Disposition <Mikel Carrillo - Last Filed: 07/01/19 00:19> Is patient prescribed a controlled substance at d/c from ED?: No <Joe Kwon - Last Filed: 07/01/19 04:15> Clinical Impression: Depression, Self-mutilation, Nausea & vomiting, Anxiety Disposition: HOME SELF-CARE Condition: Good Instructions (If sedation given, give patient instructions): Depression (ED) Referrals: None,Stated [Primary Care Provider] - 1-2 days
[2019-07-01 00:42] LABS: Basophils % (A) 1 %; Eosinophils % (A) 1 %; HCT 42.9 % (39.0-53.0); HGB 14.1 gm/dL (13.0-17.5); Lymphocytes # (A) 1.5 k/uL (1.0-4.8); Lymphocytes % (A) 28 %; MCH 27.8 pg (25.0-35.0); MCV 84.4 fL (80.0-100.0); Mean Platelet Volume 7.8; Monocytes # (A) 0.3 k/uL (0-1.0); Monocytes % (A) 6 %; Neutrophils # (A) 3.3 k/uL (1.3-7.7); Neutrophils % (A) 62 %; Platelet Count 207 k/uL (150-450); RBC 5.08 m/uL (4.30-5.90); RDW 13.1 % (11.5-15.5); WBC 5.4 k/uL (3.8-10.6)
[2019-07-01 00:55] LABS: ALT 21 U/L (21-72); AST 31 U/L (17-59); African American GFR (CKD) >90 (>60 ml/min/1.73 sqM); Albumin 4.9 g/dL (3.5-5.0); Alcohol <10 mg/dL; Alkaline Phosphatase 65 U/L (38-126); Amylase 69 U/L (30-110); Blood Urea Nitrogen 14 mg/dL (9-20); Calcium 10.3 mg/dL (8.4-10.2); Carbon Dioxide 24 mmol/L (22-30); Chloride 104 mmol/L (98-107); Glucose 118 mg/dL (74-99); Total Bilirubin 0.4 mg/dL (0.2-1.3); Total Protein 8.5 g/dL (6.3-8.2)
[2019-07-01 01:07] LABS: Anion Gap 12 mmol/L; Potassium 4.1 mmol/L (3.5-5.1); Sodium 140 mmol/L (137-145)
[2019-07-01 01:19] LABS: Appearance,Urine Clear (Clear); Bacteria,Urine Rare /hpf; Bilirubin,Urine Negative (Negative); Blood,Urine Negative (Negative); Color,Urine Yellow; Glucose,Urine (UA) Negative (Negative); Hyaline Casts,Urine 4 /lpf (0-2); Ketones,Urine 1+ (Negative); Leukocyte Esterase,Urine Negative (Negative); Mucus,Urine Many /hpf; Nitrite,Urine Negative (Negative); Protein,Urine 1+ (Negative); RBC,Urine 1 /hpf (0-5); Squamous Epithelial Cell,Urine <1 /hpf (0-4); Urobilinogen,Urine <2.0 mg/dL (<2.0); WBC,Urine 6 /hpf (0-5)
[2019-07-01 01:21] LABS: Specific Gravity,Urine 1.046 (1.001-1.035)
[2019-07-01 01:26] LABS: Amphetamine Screen,Urine Not Detected (NotDetected); Barbiturate Screen,Urine Not Detected (NotDetected); Benzodiazepines Screen,Urine Not Detected (NotDetected); Cocaine Screen,Urine Not Detected (NotDetected); Methadone Screen, Urine Not Detected (NotDetected); Opiate Screen,Urine Not Detected (NotDetected); Oxycodone Screen, Urine Not Detected (NotDetected); Phencyclidine Screen,Urine Not Detected (NotDetected); Tricyclic Antidepressant,Urine Not Detected (NotDetected); Urn Cannabinoid Scrn Detected (NotDetected)
[2019-07-01 04:24] VITALS: BP 148/72; PULSE 84; TEMP 97.9
== END 2019-07-01 04:23 | disposition home or self-care (01) ==
LOC: EC 23:13
DX: F32.9 Major depressive disorder, single episode, unspecified (principal); F41.9 Anxiety disorder, unspecified; R11.2 Nausea with vomiting, unspecified; S40.812A Abrasion of left upper arm, initial encounter; S40.811A Abrasion of right upper arm, initial encounter; S20.319A Abrasion of unspecified front wall of thorax, initial encounter; Z87.891 Personal history of nicotine dependence; X78.9XXA Intentional self-harm by unspecified sharp object, initial encounter
CPT/HCPCS: 99284; 96374; 96361 ×4; 36415; 80053; 82150; 83690; 85025; 81001; 80306; 80320; J2405

== ENCOUNTER 2022-09-25 13:47 | Emergency (ER) | payer OTHER ==
[2022-09-25 13:55] VITALS: TEMP 98.1
[2022-09-25] MEDS ORDERED: DEXAMETHASONE SOD PHOSPHATE 10 MG/ML 1 ML VIAL IM STA (15:00)
--- NOTE | 2022-09-25 15:03 | ED ---
URI HPI - General Chief Complaint: Upper Respiratory Infection Stated Complaint: Sore throat,headache Time Seen by Provider: 09/25/22 14:50 Source: patient, RN notes reviewed, old records reviewed Mode of arrival: ambulatory Limitations: no limitations - History of Present Illness Initial Comments: 27-year-old nontoxic appearing male presents ambulatory with complaints of 2-3 days sore throat, frontal headache and dry nonproductive cough. Denies any fevers. Denies any medical history. States is a nonsmoker. Has not had any sick contacts. MD Complaint: cough, sore throat -: days(s) (3) Severity scale (1-10): 2 Quality: other (sore) Consistency: constant Improves With: nothing Associated Symptoms: sore throat, cough, other (sneezing) - Related Data Home Medications Medication Instructions Recorded Confirmed No Known Home Medications 04/28/18 12/24/18 Allergies Allergy/AdvReac Type Severity Reaction Status Date / Time Penicillins Allergy Rash/Hives Verified 09/25/22 13:55 Review of Systems ROS Statement: Those systems with pertinent positive or pertinent negative responses have been documented in the HPI. ROS Other: All systems not noted in ROS Statement are negative. Past Medical History Past Medical History: No Reported History Additional Past Medical History / Comment(s): migraine headaches History of Any Multi-Drug Resistant Organisms: None Reported Past Surgical History: No Surgical Hx Reported Past Psychological History: Depression Smoking Status: Never smoker Past Alcohol Use History: None Reported Past Drug Use History: Marijuana General Exam Limitations: no limitations General appearance: alert, in no apparent distress Head exam: Present: atraumatic Eye exam: Present: normal appearance. Absent: scleral icterus, conjunctival injection, periorbital swelling ENT exam: Present: mucous membranes moist Expanded Mouth exam: Present: tongue elevation. Absent: drooling, trismus, muffled voice Throat exam: tonsillar erythema. negative: tonsillar exudate, R peritonsillar mass, L peritonsillar mass Neck exam: Present: normal inspection, full ROM. Absent: tenderness, meningismus, lymphadenopathy, thyromegaly Respiratory exam: Present: normal lung sounds bilaterally. Absent: respiratory distress, accessory muscle use Cardiovascular Exam: Present: bradycardia GI/Abdominal exam: Present: soft. Absent: rigid Extremities exam: Present: normal capillary refill. Absent: tenderness Back exam: Absent: CVA tenderness (R), CVA tenderness (L) Neurological exam: Present: alert, oriented X3, normal gait Psychiatric exam: Present: normal affect, normal mood Skin exam: Present: warm, dry. Absent: normal color, cyanosis, diaphoretic Course Vital Signs 09/25/22 13:53 Temperature 98.1 F Pulse Rate 57 L Respiratory 18 Rate Blood Pressure 120/74 O2 Sat by Pulse 99 Oximetry Medical Decision Making - Medical Decision Making Patient presents with sore throat and dry cough. Denies any fevers. No sick contacts. Rapid strep test negative. No trismus or drooling. No concern for retropharyngeal abscess. He was given Decadron for his sore throat. This is likely a viral illness. He was encouraged to increase his fluid intake, Tylenol and or Motrin as needed for any pain or discomfort. Case discussed with Dr. Blanco. - Lab Data Lab Results 09/25/22 Range/Units 15:07 Group A Strep (PCR) NOT DETECTED (Not Detectd) Disposition Clinical Impression: Pharyngitis Disposition: HOME SELF-CARE Condition: Good Instructions (If sedation given, give patient instructions): Pharyngitis (ED), Upper Respiratory Infection (ED) Additional Instructions: Increase your fluid intake. Use Vaseline inside your nostrils for moisture. Try a humidifier in the room now that the heat is on to add moisture to the air. Take Vitamin D daily from August to January to improve your immune health. Tylenol or Motrin as needed for any discomfort. Follow-up with your primary care doctor this week. Return to emergency room with any new or concerning symptoms. Is patient prescribed a controlled substance at d/c from ED?: No Referrals: None,Stated [Primary Care Provider] - 1-2 days Time of Disposition: 16:17
[2022-09-25 16:35] VITALS: BP 118/70; PULSE 62; RESP 16
== END 2022-09-25 16:30 | disposition home or self-care (01) ==
LOC: EC 13:47
DX: J02.9 Acute pharyngitis, unspecified (principal); F32.A Depression, unspecified; F12.90 Cannabis use, unspecified, uncomplicated; Z88.0 Allergy status to penicillin
CPT/HCPCS: 87651; 99284; 96372; J1100